=== PATIENT | female | born 1990 | race Caucasian/White ===

== ENCOUNTER 2023-01-22 13:24 | Emergency (ER) | payer MEDICAID, SELFPAY ==
[2023-01-22] MEDS ORDERED: diphenhydrAMINE 50 MG/ML VIAL ONE (14:01)
[2023-01-22] MEDS ORDERED: methylPREDNISolone Sod Succ/PF 125 MG/2 ML VIAL ONE (14:01)
[2023-01-22] MEDS ORDERED: diphenhydrAMINE 12.5 MG/5 ML UDCUP ONE (14:01)
[2023-01-22 15:03] LABS: Pregnancy Test - Urine (BHCG) Negative (Negative)
[2023-01-22 15:04] LABS: Pregu Control Background? CLEAR/WHITE (CLR/WHITE); Pregu Control Bar Appear? YES (CONTROL BAR)
== END 2023-01-22 15:42 | disposition home or self-care (01) ==
LOC: ERS 13:24
DX: T78.2XXA Anaphylactic shock, unspecified, initial encounter (principal)
CPT/HCPCS: 81025; 94760; 96374; 96375; J1200; J2930; Q0163